=== PATIENT | female | born 1995 | race Caucasian/White ===

== ENCOUNTER 2021-05-01 01:44 | Emergency (ER) | payer SELFPAY ==
[2021-05-01 01:58] VITALS: BP 123/79
[2021-05-01 02:15] LABS: Hematocrit 40.4 % (30.3-42.9); Hemoglobin 12.9 gm/dl (10.1-14.3); Mean Corpuscular HGB Conc 32 % (30-34); Mean Corpuscular Volume 85 fl (79-97); Platelet Count 195 K/mm3 (140-440); Red Blood Count 4.74 M/mm3 (3.65-5.03); Red Cell Distribution Width 12.3 % (13.2-15.2)
--- NOTE | 2021-05-01 02:21 | XRay Report ---
CHEST 2 VIEWS INDICATION / CLINICAL INFORMATION: Chest Pain. COMPARISON: None available. FINDINGS: SUPPORT DEVICES: None. HEART / MEDIASTINUM: No significant abnormality. LUNGS / PLEURA: No significant pulmonary abnormality. No significant pleural effusion. No pneumothora x. ADDITIONAL FINDINGS: No significant additional findings. IMPRESSION: 1. No acute abnormality of the chest. Signer Name: Elkin Zamudio MD Signed: 05/01/2021 2:17 AM Workstation Name: [id number]
[2021-05-01 02:36] LABS: Albumin 4.3 g/dL (3.9-5); Calcium 9.6 mg/dL (8.4-10.2)
[2021-05-01 03:52] LABS: Total Cells Counted 100
[2021-05-01 03:53] LABS: RBC Morphology Normal
[2021-05-01 03:54] LABS: Platelet Estimate Consistent w Auto
--- NOTE | 2021-05-01 06:21 | Emergency Department Report ---
ED Fever HPI - General Chief Complaint: Chest Pain Stated Complaint: CP Time Seen by Provider: 05/01/21 06:13 - History of Present Illness Initial Comments: Chief complaint: "I think I have the flu." HPI: 25-year-old female without significant past medical history who presents with fever, body aches, sore throat, cough and chest pain for 2 days. She needs documentation to return to work. Mild chest heaviness. No sick contacts. She has been vaccinated against COVID-19. She received 2 doses of Covid 19 vaccine. First dose received in December. She does not use oral contraceptives. Timing/Duration: other (2 day of symptoms) Fever Severity/Quality: low grade Associated Symptoms: chest pain, cough, muscle aches, sore throat ED Review of Systems ROS: Stated complaint: CP Other details as noted in HPI Comment: All other systems reviewed and negative Constitutional: chills, fever, malaise ENT: throat pain Respiratory: cough Cardiovascular: chest pain ED Past Medical Hx - Past Medical History Previous Medical History?: No - Surgical History Past Surgical History?: Yes Hx Appendectomy: Yes - Social History Smoking Status: Never Smoker Substance Use Type: None ED Physical Exam - General Limitations: No Limitations General appearance: alert, in no apparent distress, other (Well-appearing no acute distress) - Head Head exam: Present: atraumatic, normocephalic - Eye Eye exam: Present: normal appearance - ENT ENT exam: Present: mucous membranes moist - Neck Neck exam: Present: normal inspection, full ROM - Respiratory Respiratory exam: Present: normal lung sounds bilaterally. Absent: respiratory distress, wheezes, rales, rhonchi - Cardiovascular Cardiovascular Exam: Present: regular rate, normal rhythm, normal heart sounds. Absent: systolic murmur, diastolic murmur, rubs, gallop - GI/Abdominal GI/Abdominal exam: Present: soft, normal bowel sounds. Absent: distended, tenderness, guarding, rebound - Extremities Exam Extremities exam: Present: normal inspection - Back Exam Back exam: Present: normal inspection - Neurological Exam Neurological exam: Present: alert, oriented X3 - Psychiatric Psychiatric exam: Present: normal affect, normal mood - Skin Skin exam: Present: warm, dry, intact, normal color. Absent: rash ED Course Vital Signs 05/01/21 01:55 Temperature 100.0 F H Pulse Rate 96 H Respiratory 16 Rate Blood Pressure 123/79 [Left] O2 Sat by Pulse 96 Oximetry ED Medical Decision Making - Lab Data Result diagrams: 05/01/21 02:02 05/01/21 02:02 Laboratory Results - last 24 hr 05/01/21 05/01/21 02:02 02:02 WBC 5.9 RBC 4.74 Hgb 12.9 Hct 40.4 MCV 85 MCH 27 L MCHC 32 RDW 12.3 L Plt Count 195 [place] % (Auto) Dra[employer] Add Manual Diff Complete Total Counted 100 Seg Neuts % (Manual) 65.0 Lymphocytes % (Manual) 27.0 Monocytes % (Manual) 6.0 Eosinophils % (Manual) 2.0 Nucleated RBC % Not Reportable Seg Neutrophils # Man 3.8 Band Neutrophils # 0.0 Lymphocytes # (Manual) 1.6 Abs React Lymphs (Man) 0.0 Monocytes # (Manual) 0.4 Eosinophils # (Manual) 0.1 Basophils # (Manual) 0.0 Metamyelocytes # 0.0 Myelocytes # 0.0 Promyelocytes # 0.0 Blast Cells # 0.0 WBC Morphology Not Reportable Hypersegmented Neuts Not Reportable Hyposegmented Neuts Not Reportable Hypogranular Neuts Not Reportable Smudge Cells Not Reportable Toxic Granulation Not Reportable Toxic Vacuolation Not Reportable Dohle Bodies Not Reportable Pelger-Huet Anomaly Not Reportable Ghislaine Rods Not Reportable Platelet Estimate Consistent w auto Clumped Platelets Not Reportable Plt Clumps, EDTA Not Reportable Large Platelets Not Reportable Giant Platelets Not Reportable Platelet Satelliting Not Reportable Plt Morphology Comment Not Reportable RBC Morphology Normal Dimorphic RBCs Not Reportable Polychromasia Not Reportable Hypochromasia Not Reportable Poikilocytosis Not Reportable Anisocytosis Not Reportable Microcytosis Not Reportable Macrocytosis Not Reportable Spherocytes Not Reportable Pappenheimer Bodies Not Reportable Sickle Cells Not Reportable Target Cells Not Reportable Tear Drop Cells Not Reportable Ovalocytes Not Reportable Helmet Cells Not Reportable [place] Bodies Not Reportable [place] Rings Not Reportable Forrest Cells Not Reportable Bite Cells Not Reportable Crenated Cell Not Reportable Elliptocytes Not Reportable Acanthocytes (Spur) Not Reportable Rouleaux Not Reportable Hemoglobin C Crystals Not Reportable Schistocytes Not Reportable Malaria parasites Not Reportable Elbert Bodies Not Reportable Hem Pathologist Commnt No Sodium 140 Potassium 3.8 Chloride 101.5 Carbon Dioxide 26 Anion Gap 16 BUN 10 Creatinine 1.1 Estimated GFR 60 BUN/Creatinine Ratio 9 Glucose 102 H Calcium 9.6 Total Bilirubin 0.40 AST 18 ALT 15 Alkaline Phosphatase 73 Total Protein 7.3 Albumin 4.3 Albumin/Globulin Ratio 1.4 - EKG Data -: EKG Interpreted by Me EKG shows normal: sinus rhythm, axis, intervals, QRS complexes, ST-T waves Rate: normal - EKG Data Interpretation: normal EKG 05/01/21 06:24 EKG obtained 0151 EKG interpreted by me Rate 90 bpm normal axis normal intervals no ST elevation no signs of pericarditis - Radiology Data Radiology results: report reviewed Patient Name: OLAMIDE RODRIGUEZ Gender: Female Date of : 1995 Home Phone: Referring Provider: [facility] ED Organization: [facility] Accession Number: [id number] Requested Date: May 01, 2021 01:58 Report Status: Final Requested Procedure: 1 Procedure Description: XR chest routine 2V Modality: XR Findings Reporting MD: Elkin Zamudio Dictation Time: May 01, 2021 01:17 Bottle Packer: Not available Ceo Date: CHEST 2 VIEWS INDICATION / CLINICAL INFORMATION: Chest Pain. COMPARISON: None available. FINDINGS: SUPPORT DEVICES: None. HEART / MEDIASTINUM: No significant abnormality. LUNGS / PLEURA: No significant pulmonary abnormality. No significant pleural effusion. No pneumothorax. ADDITIONAL FINDINGS: No significant additional findings. IMPRESSION: 1. No acute abnormality of the chest. Signer Name: Elkin Zamudio MD Signed: 05/01/2021 1:17 AM Workstation Name: [id number] - Medical Decision Making Viral syndrome: Differential diagnosis includes COVID-19 versus influenza. Chest x-ray absent of infiltrate. Exam recommended rest hydration. Patient given documentation to return to work. According to employer's protocol she is not allowed to return until 7 days after her first day of symptoms. PERC negative for PE. I do not suspect myocarditis pericarditis or pulmonary embolism. Critical care attestation.: If time is entered above; I have spent that time in minutes in the direct care of this critically ill patient, excluding procedure time. ED Disposition Clinical Impression: Viral syndrome Disposition: 01 HOME / SELF CARE / HOMELESS Is pt being admited?: No Does the pt Need Aspirin: No Condition: Stable Instructions: Viral Illness, Adult Referrals: MARGIE BROWNING MD [Staff Physician] - as needed Forms: Work/School Release Form(ED)
--- NOTE | 2021-05-01 17:35 | Electrocardiograph Report ---
[facility] Test Date: 2021-05-01 Test Time: 01:51:10 Pat Name: OLAMIDE RODRIGUEZ Department: Room: Gender: F Computer Information Science Professor: BRANDIN : 1995 Requested By: JG LILLY Order Number: [id number] Reading MD: Apolinar Campuzano Measurements Intervals Spencer Rate: 88 P: 64 NV: 140 QRS: 85 QRSD: 75 T: 58 QT: 331 QTc: 401 Interpretive Statements Sinus rhythm Probable left atrial enlargement No previous ECG available for comparison Electronically Signed On 05-01-2021 17:35:14 EST by Apolinar Campuzano
== END 2021-05-02 05:16 | disposition home or self-care (01) ==
LOC: ED 01:44
DX: B34.9 Viral infection, unspecified (principal); Z90.49 Acquired absence of other specified parts of digestive tract; Z88.0 Allergy status to penicillin
CPT/HCPCS: 36415; 71046; 80053; 85007; 85025; 93005; 99283